=== PATIENT | female | born 1945 | race Two or more races ===

== ENCOUNTER 2022-11-21 19:16 | Emergency (ER) | payer OTHER ==
[~2022-11-21] VITALS: Ht 167.6 cm; Wt 67.7 kg
[2022-11-21 20:15] VITALS: BP 110/63
[2022-11-22] MEDS ORDERED: ACE3T PO (00:52)
[2022-11-22] MEDS ORDERED: HYDROcodone-ACET 5/325MG TAB PO ONE (01:00)
[2022-11-22] MEDS ORDERED: ONDANSETRON ODT 4 MG TAB PO ONE (01:00)
== END 2022-11-22 01:07 | disposition home or self-care (01) ==
LOC: ER 19:19
DX: S83.92XA Sprain of unspecified site of left knee, initial encounter (principal); W22.8XXA Striking against or struck by other objects, initial encounter; Y93.89 Activity, other specified; Y92.89 Other specified places as the place of occurrence of the external cause; Y99.8 Other external cause status
CPT/HCPCS: 29505; 73562; 99283; Q0162